=== PATIENT | female | born 1990 | race Caucasian/White ===

== ENCOUNTER 2023-01-15 18:45 | Emergency (ER) | payer OTHER ==
[~2023-01-15] VITALS: Ht 170.2 cm; Wt 85.5 kg
[2023-01-15 18:45] VITALS: BP 139/84; TEMP 98.8; O2SAT 99
[2023-01-15] MEDS ORDERED: DOXY-443 PO (20:20)
[2023-01-15] MEDS ORDERED: DOXYCYCLINE HYCLATE 100MG TABLET PO ONE (20:20)
== END 2023-01-15 20:30 | disposition home or self-care (01) ==
LOC: M ED 18:45
DX: L03.312 Cellulitis of back [any part except buttock and flank] (principal); Z88.6 Allergy status to analgesic agent; Z79.2 Long term (current) use of antibiotics

== ENCOUNTER 2023-03-12 09:25 | Emergency (ER) | payer OTHER ==
[~2023-03-12] VITALS: Ht 167.6 cm; Wt 83.2 kg
[~2023-03-12 09:25] MED LIST: DOXY-443 PO
[2023-03-12] MEDS ORDERED: BISO5TAB14 PO (09:37)
[2023-03-12 12:38] LABS: CK-MB VALUE MASS < 1.0 NG/ML (<3.6); CPK CREATINE PHOSPHOKINASE 71 U/L (34-145)
[2023-03-12 12:53] LABS: BASO % 0.4 % (0.0-1.0); EOS # 0.1 10^3/uL (0.0-0.5); EOS % 1.8 % (0.0-3.0); HEMATOCRIT 38.8 % (36.0-47.0); LYMPH # 1.8 10^3/uL (1.5-5.0); MEAN CORPUSCULAR HEMOGLOBIN 29.5 pg (27.0-33.0); MEAN CORPUSCULAR HGB CONC 33.5 g/dl (32.0-36.5); MEAN CORPUSCULAR VOLUME 88.2 fl (80.0-96.0); MONO # 0.7 10^3/uL (0.0-0.8); MONO % 10.2 % (2.0-8.0); NEUTROPHILS # 4.4 10^3/uL (1.5-8.5); NEUTROPHILS % 62.3 % (36.0-66.0); PLATELET COUNT, AUTOMATED 306 10^3/uL (150-450); WHITE BLOOD COUNT 7.1 10^3/uL (4.0-10.0)
[2023-03-12 13:20] LABS: INR 1.04; PROTHROMBIN TIME 13.3 SECONDS (12.5-14.5)
[2023-03-12 13:21] LABS: PARTIAL THROMBOPLASTIN TIME 36.8 SECONDS (24.8-34.2)
[2023-03-12 13:24] LABS: D-DIMER QUANT 0.31 ug/mL (<0.5)
[2023-03-12] MEDS ORDERED: methylPREDNISolone 125MG 2ML VIAL IV ONE (19:10)
[2023-03-12] MEDS ORDERED: KETOROLAC 30 MG/ML 1ML VIAL IV ONE (19:10)
[2023-03-12] MEDS ORDERED: MEDR4PAK PO (19:15)
[2023-03-12 19:38] VITALS: BP 116/78; TEMP 97.6; O2SAT 99
== END 2023-03-12 20:04 | disposition home or self-care (01) ==
LOC: M ED 09:25
DX: R07.9 Chest pain, unspecified (principal); R53.1 Weakness; R20.2 Paresthesia of skin; Z79.82 Long term (current) use of aspirin; Z79.899 Other long term (current) drug therapy; Z88.8 Allergy status to other drugs, medicaments and biological substances
CPT/HCPCS: 70450; 70544; 70551; 71045; 72125; 72141; 80047; 82550; 82553; 84484; 84702; 85025; 85379; 85610; 85730; 93005; 96374; 96375; 99284; J1885; J2930

== ENCOUNTER 2023-03-22 22:29 | Emergency (ER) | payer OTHER ==
[~2023-03-22] VITALS: Ht 167.6 cm; Wt 83.9 kg
[~2023-03-22 22:29] MED LIST changes: +BISO5TAB14 PO; +MEDR4PAK PO
[2023-03-22] MEDS ORDERED: LORazepam 2 MG/ML 1ML VIAL IV STA (23:52)
[2023-03-23 00:41] LABS: BASO % 0.4 % (0.0-1.0); EOS # 0.2 10^3/uL (0.0-0.5); HEMATOCRIT 40.6 % (36.0-47.0); HEMOGLOBIN 13.6 g/dl (12.0-15.5); LYMPH # 2.8 10^3/uL (1.5-5.0); LYMPH % 25.4 % (24.0-44.0); MEAN CORPUSCULAR HEMOGLOBIN 29.8 pg (27.0-33.0); MEAN CORPUSCULAR HGB CONC 33.5 g/dl (32.0-36.5); MONO # 0.9 10^3/uL (0.0-0.8); NEUTROPHILS # 6.9 10^3/uL (1.5-8.5); NEUTROPHILS % 63.7 % (36.0-66.0); PLATELET COUNT, AUTOMATED 360 10^3/uL (150-450); RED BLOOD COUNT 4.56 10^6/uL (4.00-5.40); WHITE BLOOD COUNT 10.9 10^3/uL (4.0-10.0)
[2023-03-23 01:34] LABS: HCG, SERUM QUALITATIVE NEGATIVE (NEGATIVE)
[2023-03-23 01:48] LABS: BLOOD UREA NITROGEN 13 MG/DL (9-23); CALCIUM LEVEL 9.4 MG/DL (8.5-10.1); CARBON DIOXIDE LEVEL 28 MMOL/L (20-31); CHLORIDE LEVEL 102 MMOL/L (98-107); CK-MB VALUE MASS < 1.0 NG/ML (<3.6); CREATININE FOR GFR 0.56 MG/DL (0.55-1.30); GLOMERULAR FILTRATION RATE > 60.0 (>60); GLUCOSE, FASTING 107 MG/DL (60-100); POTASSIUM SERUM 3.9 MMOL/L (3.5-5.1); SODIUM LEVEL 140 MMOL/L (136-145)
[2023-03-23 01:53] LABS: CPK CREATINE PHOSPHOKINASE 62 U/L (34-145); MB/CK RELATIVE INDEX 1.61 (< OR =4)
[2023-03-23] MEDS ORDERED: ISOVUE-370 76% 100ML VIAL As Ordered ONE (02:05)
[2023-03-23 02:32] VITALS: TEMP 98.1
[2023-03-23 03:30] LABS: CK-MB VALUE MASS < 1.0 NG/ML (<3.6)
[2023-03-23 03:32] LABS: CPK CREATINE PHOSPHOKINASE 37 U/L (34-145)
[2023-03-23] MEDS ORDERED: NAPR-837 PO (05:04)
[2023-03-23] MEDS ORDERED: KETOROLAC 30 MG/ML 1ML VIAL IV ONE (05:05)
[2023-03-23 05:15] VITALS: BP 117/63
[2023-03-23 05:17] VITALS: O2SAT 97
== END 2023-03-23 05:31 | disposition home or self-care (01) ==
LOC: M ED 22:29
DX: R07.89 Other chest pain (principal); F06.4 Anxiety disorder due to known physiological condition; I45.81 Long QT syndrome; F17.200 Nicotine dependence, unspecified, uncomplicated; Z88.6 Allergy status to analgesic agent; Z79.1 Long term (current) use of non-steroidal anti-inflammatories (NSAID); Z79.899 Other long term (current) drug therapy
CPT/HCPCS: 71275; 80048; 82550; 82553; 84484; 84703; 85025; 93005; 93041; 94760; 96374; 96375; 99285; J1885; J2060; Q9967

== ENCOUNTER 2024-04-08 11:14 | Emergency (ER) | payer OTHER ==
[~2024-04-08] VITALS: Ht 167.6 cm; Wt 83.6 kg
[~2024-04-08 11:14] MED LIST changes: +DOXY-441 PO; -DOXY-443 PO; +NAPR-837 PO
[2024-04-08 11:48] LABS: BASO % 0.3 % (0.0-1.0); EOS # 0.1 10^3/uL (0.0-0.5); EOS % 1.6 % (0.0-3.0); HEMATOCRIT 39.9 % (36.0-47.0); HEMOGLOBIN 13.4 g/dl (12.0-15.5); LYMPH # 1.9 10^3/uL (1.5-5.0); LYMPH % 27.1 % (24.0-44.0); MEAN CORPUSCULAR HEMOGLOBIN 30.1 pg (27.0-33.0); MEAN CORPUSCULAR HGB CONC 33.6 g/dl (32.0-36.5); MEAN CORPUSCULAR VOLUME 89.7 fl (80.0-96.0); MONO # 0.5 10^3/uL (0.0-0.8); MONO % 6.4 % (2.0-8.0); NEUTROPHILS # 4.6 10^3/uL (1.5-8.5); NEUTROPHILS % 64.5 % (36.0-66.0); PLATELET COUNT, AUTOMATED 330 10^3/uL (150-450); RED BLOOD COUNT 4.45 10^6/uL (4.00-5.40); WHITE BLOOD COUNT 7.1 10^3/uL (4.0-10.0)
[2024-04-08 11:58] LABS: INR 0.95; PARTIAL THROMBOPLASTIN TIME 38.4 SECONDS (24.8-34.2)
[2024-04-08 12:09] LABS: HCG, SERUM QUALITATIVE NEGATIVE (NEGATIVE)
[2024-04-08 12:10] LABS: CPK CREATINE PHOSPHOKINASE 70 U/L (34-145)
[2024-04-08 12:11] LABS: BLOOD UREA NITROGEN 10 MG/DL (9-23); CALCIUM LEVEL 9.8 MG/DL (8.5-10.1); CARBON DIOXIDE LEVEL 29 MMOL/L (20-31); CHLORIDE LEVEL 104 MMOL/L (98-107); CK-MB VALUE MASS < 1.0 NG/ML (<3.6); CREATININE FOR GFR 0.56 MG/DL (0.55-1.30); GLOMERULAR FILTRATION RATE > 60.0 (>60); GLUCOSE, FASTING 122 MG/DL (60-100); MB/CK RELATIVE INDEX 1.42 (< OR =4); POTASSIUM SERUM 4.2 MMOL/L (3.5-5.1); SODIUM LEVEL 140 MMOL/L (136-145)
[2024-04-08 17:07] VITALS: BP 119/77; TEMP 97.8; O2SAT 99
== END 2024-04-08 17:07 | disposition left against medical advice (07) ==
LOC: M ED 11:14
DX: R07.9 Chest pain, unspecified (principal); I10 Essential (primary) hypertension; F17.200 Nicotine dependence, unspecified, uncomplicated; Z88.6 Allergy status to analgesic agent; Z79.899 Other long term (current) drug therapy; Z53.9 Procedure and treatment not carried out, unspecified reason

== ENCOUNTER 2024-04-11 21:49 | Emergency (ER) | payer OTHER ==
[~2024-04-11] VITALS: Ht 167.6 cm; Wt 88.0 kg
[2024-04-11 22:31] LABS: BASO % 0.4 % (0.0-1.0); EOS # 0.2 10^3/uL (0.0-0.5); EOS % 2.2 % (0.0-3.0); HEMOGLOBIN 13.5 g/dl (12.0-15.5); LYMPH # 2.7 10^3/uL (1.5-5.0); LYMPH % 30.4 % (24.0-44.0); MEAN CORPUSCULAR HEMOGLOBIN 29.9 pg (27.0-33.0); MEAN CORPUSCULAR HGB CONC 33.8 g/dl (32.0-36.5); MEAN CORPUSCULAR VOLUME 88.5 fl (80.0-96.0); MONO # 0.7 10^3/uL (0.0-0.8); MONO % 7.9 % (2.0-8.0); NEUTROPHILS # 5.2 10^3/uL (1.5-8.5); NEUTROPHILS % 58.9 % (36.0-66.0); PLATELET COUNT, AUTOMATED 321 10^3/uL (150-450); RED BLOOD COUNT 4.52 10^6/uL (4.00-5.40); WHITE BLOOD COUNT 8.9 10^3/uL (4.0-10.0)
[2024-04-11 23:00] LABS: BLOOD UREA NITROGEN 15 MG/DL (9-23); CALCIUM LEVEL 10.2 MG/DL (8.5-10.1); CARBON DIOXIDE LEVEL 29 MMOL/L (20-31); CHLORIDE LEVEL 106 MMOL/L (98-107); CK-MB VALUE MASS < 1.0 NG/ML (<3.6); CREATININE FOR GFR 0.59 MG/DL (0.55-1.30); GLOMERULAR FILTRATION RATE > 60.0 (>60); GLUCOSE, FASTING 97 MG/DL (60-100); POTASSIUM SERUM 4.3 MMOL/L (3.5-5.1); SODIUM LEVEL 141 MMOL/L (136-145)
[2024-04-11 23:03] LABS: CPK CREATINE PHOSPHOKINASE 145 U/L (34-145); MB/CK RELATIVE INDEX 0.68 (< OR =4)
[2024-04-11 23:25] LABS: HCG, SERUM QUALITATIVE NEGATIVE (NEGATIVE)
[2024-04-11] MEDS: KETOROLAC 30 MG/ML 1ML VIAL IV ONE (23:25)
[2024-04-12] VITALS: TEMP 98
[2024-04-12 00:12] LABS: CK-MB VALUE MASS < 1.0 NG/ML (<3.6)
[2024-04-12 00:14] LABS: CPK CREATINE PHOSPHOKINASE 127 U/L (34-145); MB/CK RELATIVE INDEX 0.78 (< OR =4)
[2024-04-12] MEDS ORDERED: ISOVUE-370 76% 100ML VIAL As Ordered ONE (00:22)
[2024-04-12 01:30] VITALS: BP 102/55; O2SAT 99
== END 2024-04-12 02:04 | disposition home or self-care (01) ==
LOC: M ED 21:49
DX: R07.89 Other chest pain (principal); F17.200 Nicotine dependence, unspecified, uncomplicated; Z88.6 Allergy status to analgesic agent; Z79.1 Long term (current) use of non-steroidal anti-inflammatories (NSAID); Z79.899 Other long term (current) drug therapy
CPT/HCPCS: 71045; 71275; 80048; 82550; 82553; 84484; 84703; 85025; 93005; 93041; 94760; 96374; 99284; J1885; Q9967

== ENCOUNTER 2024-08-03 16:51 | Emergency (ER) | payer OTHER ==
[~2024-08-03] VITALS: Ht 167.6 cm; Wt 88.4 kg
[2024-08-03 19:31] LABS: BASO % 0.4 % (0.0-1.0); EOS % 0.7 % (0.0-3.0); HEMATOCRIT 38.4 % (36.0-47.0); HEMOGLOBIN 13.1 g/dl (12.0-15.5); LYMPH # 0.8 10^3/uL (1.5-5.0); LYMPH % 14.1 % (24.0-44.0); MEAN CORPUSCULAR HEMOGLOBIN 29.8 pg (27.0-33.0); MEAN CORPUSCULAR HGB CONC 34.1 g/dl (32.0-36.5); MEAN CORPUSCULAR VOLUME 87.5 fl (80.0-96.0); MONO # 0.9 10^3/uL (0.0-0.8); MONO % 16.3 % (2.0-8.0); NEUTROPHILS # 3.8 10^3/uL (1.5-8.5); NEUTROPHILS % 68.1 % (36.0-66.0); PLATELET COUNT, AUTOMATED 270 10^3/uL (150-450); RED BLOOD COUNT 4.39 10^6/uL (4.00-5.40); WHITE BLOOD COUNT 5.6 10^3/uL (4.0-10.0)
[2024-08-03 19:51] LABS: LIPASE 29 U/L (12-53)
[2024-08-03 19:53] LABS: ALBUMIN 3.7 G/DL (3.2-5.2); ALKALINE PHOSPHATASE 83 U/L (35-104); ALT/SGPT 37 U/L (7.0-40); AST/SGOT 18 U/L (<34); BILIRUBIN,DIRECT 0.1 MG/DL (<0.4); BILIRUBIN,TOTAL 0.4 MG/DL (0.3-1.2); BLOOD UREA NITROGEN 9 MG/DL (9-23); CALCIUM LEVEL 9.5 MG/DL (8.5-10.1); CARBON DIOXIDE LEVEL 28 MMOL/L (20-31); CHLORIDE LEVEL 100 MMOL/L (98-107); CREATININE FOR GFR 0.56 MG/DL (0.55-1.30); GLOMERULAR FILTRATION RATE > 60.0 (>60); GLUCOSE, FASTING 88 MG/DL (60-100); POTASSIUM SERUM 3.8 MMOL/L (3.5-5.1); SODIUM LEVEL 136 MMOL/L (136-145); TOTAL PROTEIN 7.7 G/DL (5.7-8.2)
[2024-08-03 21:25] VITALS: BP 109/70; TEMP 100.7; O2SAT 97
== END 2024-08-04 01:00 | disposition left against medical advice (07) ==
LOC: M ED 16:51
DX: Z53.21 Procedure and treatment not carried out due to patient leaving prior to being seen by health care provider (principal)

== ENCOUNTER 2024-09-04 13:30 | Emergency (ER) | payer OTHER ==
[~2024-09-04] VITALS: Ht 167.6 cm; Wt 90.6 kg
[2024-09-04 14:05] LABS: BASO % 0.3 % (0.0-1.0); EOS # 0.1 10^3/uL (0.0-0.5); HEMATOCRIT 35.4 % (36.0-47.0); HEMOGLOBIN 11.9 g/dl (12.0-15.5); LYMPH # 1.7 10^3/uL (1.5-5.0); LYMPH % 17.8 % (24.0-44.0); MEAN CORPUSCULAR HEMOGLOBIN 29.2 pg (27.0-33.0); MEAN CORPUSCULAR HGB CONC 33.6 g/dl (32.0-36.5); MONO # 0.7 10^3/uL (0.0-0.8); MONO % 7.1 % (2.0-8.0); NEUTROPHILS # 6.8 10^3/uL (1.5-8.5); NEUTROPHILS % 73.4 % (36.0-66.0); PLATELET COUNT, AUTOMATED 290 10^3/uL (150-450); RED BLOOD COUNT 4.07 10^6/uL (4.00-5.40); WHITE BLOOD COUNT 9.3 10^3/uL (4.0-10.0)
[2024-09-04 14:24] LABS: CK-MB VALUE MASS < 1.0 NG/ML (<3.6)
[2024-09-04 14:28] LABS: BLOOD UREA NITROGEN 12 MG/DL (9-23); CALCIUM LEVEL 9.3 MG/DL (8.5-10.1); CARBON DIOXIDE LEVEL 27 MMOL/L (20-31); CHLORIDE LEVEL 104 MMOL/L (98-107); CPK CREATINE PHOSPHOKINASE 78 U/L (34-145); CREATININE FOR GFR 0.51 MG/DL (0.55-1.30); GLOMERULAR FILTRATION RATE > 90.0 (>60); GLUCOSE, FASTING 103 MG/DL (60-100); MB/CK RELATIVE INDEX 1.28 (< OR =4); POTASSIUM SERUM 3.9 MMOL/L (3.5-5.1); SODIUM LEVEL 137 MMOL/L (136-145)
[2024-09-04] MEDS: ACETAMINOPHEN 325 MG TAB PO ONE (15:21)
[2024-09-04 16:03] LABS: CK-MB VALUE MASS < 1.0 NG/ML (<3.6)
[2024-09-04 16:04] LABS: CPK CREATINE PHOSPHOKINASE 75 U/L (34-145); MB/CK RELATIVE INDEX 1.33 (< OR =4)
[2024-09-04 17:13] VITALS: BP 109/57; TEMP 98.1; O2SAT 96
== END 2024-09-04 17:15 | disposition home or self-care (01) ==
LOC: M ED 13:30
DX: R07.89 Other chest pain (principal); E11.9 Type 2 diabetes mellitus without complications; I10 Essential (primary) hypertension; Z88.6 Allergy status to analgesic agent; Z79.899 Other long term (current) drug therapy; Z79.1 Long term (current) use of non-steroidal anti-inflammatories (NSAID)

== ENCOUNTER 2024-12-28 09:16 | Inpatient (IN) | payer OTHER ==
[2024-12-28] VITALS (13 sets, daily range): BP systolic 98–109; BP diastolic 55–66; TEMP 97.6–98.8; O2SAT 96–100
[~2024-12-28] VITALS: Ht 167.6 cm; Wt 96.0 kg
[2024-12-28] MEDS ORDERED: LABE100T6 PO (09:30)
[2024-12-28] MEDS: NS (Normal Saline) 0.9% 1,000 ML IV ONE (09:51)
[2024-12-28] MEDS ORDERED: ADENOSINE 6 MG/2 ML INJECTION As Ordered ONE (10:03)
[2024-12-28 10:05] LABS: BASO # 0.0 10^3/uL (0.0-0.2); BASO % 0.2 % (0.0-1.0); EOS # 0.1 10^3/uL (0.0-0.5); EOS % 0.9 % (0.0-3.0); LYMPH # 1.3 10^3/uL (1.5-5.0); LYMPH % 11.5 % (24.0-44.0); MONO # 0.8 10^3/uL (0.0-0.8); MONO % 7.5 % (2.0-8.0); NEUTROPHILS # 8.9 10^3/uL (1.5-8.5); NEUTROPHILS % 79.3 % (36.0-66.0); PLATELET COUNT, AUTOMATED 199 10^3/uL (150-450)
[2024-12-28] MEDS: ADENOSINE 6 MG/2 ML INJECTION IV STA (10:05)
[2024-12-28] MEDS ORDERED: HOME MED LIST COMPLETE! XX SCH (10:30)
[2024-12-28 10:38] LABS: ALT/SGPT 11 U/L (7.0-40); AST/SGOT 12 U/L (<34); CALCIUM LEVEL 8.7 MG/DL (8.5-10.1); CARBON DIOXIDE LEVEL 22 MMOL/L (20-31); CHLORIDE LEVEL 107 MMOL/L (98-107); CREATININE FOR GFR 0.43 MG/DL (0.55-1.30); GLOMERULAR FILTRATION RATE > 90.0 (>60); POTASSIUM SERUM 4.0 MMOL/L (3.5-5.1); SODIUM LEVEL 141 MMOL/L (136-145)
[2024-12-28 10:40] LABS: FREE T4 0.92 NG/DL (0.89-1.76)
[2024-12-28] MEDS: LABETALOL 100 MG TAB PO STA (10:53)
[2024-12-28] MEDS: MAG SULF 1GM/100ML (MAG RUN) 1 GM in IV 1 EA IV SCH (11:02)
[2024-12-28] MEDS: LR 1,000 ML IV SCH (12:21)
[2024-12-28 13:01] LABS: KETONE, URINE AUTO RFX TRACE mg/dL (NEGATIVE); LEUKOCYTE ESTERASE UR AUTO RFX NEGATIVE (NEGATIVE); MUCUS, URINE RFX SMALL (NEGATIVE); NITRITE, URINE AUTO RFX NEGATIVE (NEGATIVE); RBC, URINE AUTO RFX 0 /HPF (0-3); SQUAM EPITHELIAL CELL UR AURFX 12 /HPF (0-6); WBC, URINE AUTO RFX 1 /HPF (0-3)
[2024-12-28] MEDS: LORazepam 0.5 MG TAB PO PRN (16:56)
[2024-12-28] MEDS: MAG SULF 1GM/100ML (MAG RUN) 1 GM in IV 1 EA IV ONE (20:10)
[2024-12-28] MEDS: LABETALOL 100 MG TAB PO SCH (20:36)
[2024-12-28] MEDS ORDERED: LABETALOL 100 MG TAB PO SCH (21:00)
[2024-12-29] VITALS (9 sets, daily range): BP systolic 101–116; BP diastolic 55–61; TEMP 98–98.7; O2SAT 95–100
[2024-12-29 04:45] LABS: BASO # 0.0 10^3/uL (0.0-0.2); BASO % 0.2 % (0.0-1.0); EOS # 0.1 10^3/uL (0.0-0.5); EOS % 1.1 % (0.0-3.0); LYMPH # 1.9 10^3/uL (1.5-5.0); LYMPH % 18.8 % (24.0-44.0); MONO # 0.9 10^3/uL (0.0-0.8); MONO % 9.1 % (2.0-8.0); NEUTROPHILS # 7.0 10^3/uL (1.5-8.5); NEUTROPHILS % 70.1 % (36.0-66.0); PLATELET COUNT, AUTOMATED 180 10^3/uL (150-450)
[2024-12-29 05:18] LABS: CALCIUM LEVEL 8.5 MG/DL (8.5-10.1); CARBON DIOXIDE LEVEL 24 MMOL/L (20-31); CHLORIDE LEVEL 108 MMOL/L (98-107); CREATININE FOR GFR 0.42 MG/DL (0.55-1.30); GLOMERULAR FILTRATION RATE > 90.0 (>60); MAGNESIUM LEVEL 1.8 MG/DL (1.8-2.4); POTASSIUM SERUM 4.1 MMOL/L (3.5-5.1); SODIUM LEVEL 142 MMOL/L (136-145)
[2024-12-29] MEDS: MAG SULF 1GM/100ML (MAG RUN) 1 GM in IV 1 EA IV SCH (08:33)
[2024-12-29] MEDS: ENOXAPARIN 40 MG/0.4 ML SYRINGE (J1650 PER 10MG) SC SCH (08:34)
[2024-12-29] MEDS: ACETAMINOPHEN 325 MG TAB PO PRN (12:31)
[2024-12-29 13:01] LABS: PHOSPHORUS LEVEL 4.0 MG/DL (2.5-4.9)
[2024-12-29] MEDS: LOPERAMIDE 2 MG CAPLET PO PRN (14:10)
[2024-12-29] MEDS: MAGNESIUM OXIDE 400 MG TAB PO SCH (20:12)
[2024-12-30] VITALS: BP 106/58; TEMP 98.5; O2SAT 95
[2024-12-30 04:00] VITALS: BP 109/62; TEMP 98.3; O2SAT 95
[2024-12-30 04:52] LABS: BASO # 0.0 10^3/uL (0.0-0.2); BASO % 0.2 % (0.0-1.0); EOS # 0.2 10^3/uL (0.0-0.5); EOS % 1.7 % (0.0-3.0); LYMPH # 1.8 10^3/uL (1.5-5.0); LYMPH % 19.5 % (24.0-44.0); MONO # 0.9 10^3/uL (0.0-0.8); MONO % 9.8 % (2.0-8.0); NEUTROPHILS # 6.3 10^3/uL (1.5-8.5); NEUTROPHILS % 67.9 % (36.0-66.0); PLATELET COUNT, AUTOMATED 209 10^3/uL (150-450)
[2024-12-30 05:13] LABS: CALCIUM LEVEL 8.7 MG/DL (8.5-10.1); CARBON DIOXIDE LEVEL 23 MMOL/L (20-31); CHLORIDE LEVEL 107 MMOL/L (98-107); CREATININE FOR GFR 0.42 MG/DL (0.55-1.30); GLOMERULAR FILTRATION RATE > 90.0 (>60); MAGNESIUM LEVEL 1.7 MG/DL (1.8-2.4); POTASSIUM SERUM 4.0 MMOL/L (3.5-5.1); SODIUM LEVEL 144 MMOL/L (136-145)
[2024-12-30] MEDS: MAG SULF 1GM/100ML (MAG RUN) 1 GM in IV 1 EA IV ONE (06:28)
[2024-12-30] MEDS ORDERED: MAGNESIUM SULFATE 1 GM/100 ML D5W BAG (10MG/ML) As Ordered ONE (08:33)
[2024-12-30] MEDS ORDERED: MAGN400T33 PO (08:36)
[2024-12-30] MEDS ORDERED: LABE100T6 PO (08:36)
[2024-12-30] MEDS ORDERED: LOPE2CAP PO (08:36)
[2024-12-30 08:38] VITALS: BP 117/67; TEMP 98; O2SAT 97
[2024-12-30] MEDS: MAG SULF 1GM/100ML (MAG RUN) 1 GM in IV 1 EA IV SCH (08:39)
== END 2024-12-30 10:00 | disposition home or self-care (01) | DRG 832 ==
LOC: EDBD 09:16 → M ED 10:33 → M ED INP 10:50 → M ICU 11:24
PROVIDERS: ADMIT Internal Medicine Pulmonary Disease; ATTEND Internal Medicine
DX: O99.412 Diseases of the circulatory system complicating pregnancy, second trimester (principal); I47.10 Supraventricular tachycardia, unspecified; E86.0 Dehydration; F41.9 Anxiety disorder, unspecified; R19.7 Diarrhea, unspecified; E83.42 Hypomagnesemia; Z3A.27 27 weeks gestation of pregnancy; O99.342 Other mental disorders complicating pregnancy, second trimester; O99.282 Endocrine, nutritional and metabolic diseases complicating pregnancy, second trimester; D64.9 Anemia, unspecified; O99.012 Anemia complicating pregnancy, second trimester; Z79.899 Other long term (current) drug therapy

== ENCOUNTER → 2024-12-30 | Outpatient (CLI) | payer OTHER ==
[~2024-12-30] MED LIST changes: +LABE100T6 PO; +LOPE2CAP PO; +MAGN400T33 PO
== END ==
LOC: M WHC 11:30
PROVIDERS: ATTEND Obstetrics & Gynecology
DX: Z34.82 Encounter for supervision of other normal pregnancy, second trimester (principal)

== ENCOUNTER → 2025-01-04 | Outpatient (CLI) | payer OTHER ==
[2025-01-04 13:49] LABS: PLATELET COUNT, AUTOMATED 221 10^3/uL (150-450)
[2025-01-04 14:17] LABS: GLUCOSE CHALLENGE TEST 1 HOUR 145 MG/DL (LESS THAN 140)
[2025-01-04 14:45] LABS: HIV 1&2 SCREEN NEGATIVE (NEGATIVE)
[2025-01-04 14:52] LABS: Trichomonas vaginalis (AMP) NOT DETECTED (NEGATIVE)
[2025-01-04 14:53] LABS: HEPATITIS C VIRUS ABY INDEX < 0.02 INDEX (<0.8)
[2025-01-04 15:15] LABS: GC DNA AMPLIFICATION NEGATIVE (NEGATIVE)
== END ==
LOC: M PLALAB 10:39
PROVIDERS: ATTEND Obstetrics & Gynecology
DX: Z34.82 Encounter for supervision of other normal pregnancy, second trimester (principal); Z3A.00 Weeks of gestation of pregnancy not specified
CPT/HCPCS: 36415; 82950; 83735; 85027; 86780; 86803; 86850; 86900; 86901; 87389; 87661; 87810; 87850; J2790

== ENCOUNTER → 2025-01-04 | Outpatient (CLI) | payer OTHER | LOC: M PLALAB 10:38 | PROVIDERS: ATTEND Advanced Practice Midwife | DX: O34.211 Maternal care for low transverse scar from previous cesarean delivery (principal); Z3A.00 Weeks of gestation of pregnancy not specified ==

== ENCOUNTER 2025-01-17 16:19 | Emergency (ER) | payer OTHER ==
[~2025-01-17] VITALS: Ht 167.6 cm; Wt 95.2 kg
[2025-01-17] MEDS ORDERED: CLIN-250 (16:41)
[2025-01-17] MEDS ORDERED: PRENTAB9 (16:41)
[2025-01-17] MEDS ORDERED: LOPE1CAP5 (16:41)
[2025-01-17] MEDS: MAGIC MOUTHWASH 5 ML ORAL SYRINGE SS ONE (17:35)
[2025-01-17 18:12] VITALS: BP 112/57; TEMP 97.9; O2SAT 97
== END 2025-01-17 18:17 | disposition home or self-care (01) ==
LOC: M ED 16:19
DX: R09.A2 Foreign body sensation, throat (principal); I10 Essential (primary) hypertension; Z88.6 Allergy status to analgesic agent; Z79.899 Other long term (current) drug therapy

== ENCOUNTER → 2025-01-29 | Outpatient (CLI) | payer OTHER ==
[~2025-01-29] MED LIST changes: +AMOX875T2 PO; +CLIN-250; +LOPE1CAP5; +PRENTAB9
== END ==
LOC: M WHC 15:04
PROVIDERS: ATTEND Obstetrics & Gynecology
DX: O99.419 Diseases of the circulatory system complicating pregnancy, unspecified trimester (principal)

== ENCOUNTER 2025-01-31 06:42 | Outpatient (CLI) | payer OTHER ==
[~2025-01-31] VITALS: Ht 167.6 cm; Wt 94.0 kg
[~2025-01-31 06:42] MED LIST changes: -AMOX875T2 PO
[2025-01-31 07:05] VITALS: BP 108/61
[2025-01-31] MEDS: LACTATED RINGER'S 1000 ML IV STA (08:25)
[2025-01-31 08:33] VITALS: BP 112/62
[2025-01-31 08:48] LABS: BASO # 0.0 10^3/uL (0.0-0.2); BASO % 0.2 % (0.0-1.0); EOS # 0.1 10^3/uL (0.0-0.5); EOS % 0.5 % (0.0-3.0); LYMPH # 0.7 10^3/uL (1.5-5.0); LYMPH % 5.6 % (24.0-44.0); MONO # 0.7 10^3/uL (0.0-0.8); MONO % 5.9 % (2.0-8.0); NEUTROPHILS # 10.8 10^3/uL (1.5-8.5); NEUTROPHILS % 87.1 % (36.0-66.0); PLATELET COUNT, AUTOMATED 215 10^3/uL (150-450)
[2025-01-31 09:09] LABS: ALT/SGPT 16 U/L (7.0-40); AST/SGOT 34 U/L (<34); CALCIUM LEVEL 9.2 MG/DL (8.5-10.1); CARBON DIOXIDE LEVEL 26 MMOL/L (20-31); CHLORIDE LEVEL 101 MMOL/L (98-107); CREATININE FOR GFR 0.49 MG/DL (0.55-1.30); GLOMERULAR FILTRATION RATE > 90.0 (>60); POTASSIUM SERUM 4.9 MMOL/L (3.5-5.1); SODIUM LEVEL 136 MMOL/L (136-145)
[2025-01-31] MEDS: LR 1,000 ML IV SCH (09:26)
[2025-01-31 09:49] VITALS: BP 115/65
[2025-01-31 11:14] VITALS: BP 99/55
[2025-01-31] MEDS ORDERED: AMOX875T2 PO (12:53)
[2025-01-31] MEDS: AUGMENTIN 875 MG TAB PO ONE (13:39)
== END 2025-01-31 14:10 | disposition home or self-care (01) ==
LOC: M LDO 06:42
PROVIDERS: ATTEND Specialist
DX: O99.613 Diseases of the digestive system complicating pregnancy, third trimester (principal); O99.413 Diseases of the circulatory system complicating pregnancy, third trimester; K52.9 Noninfective gastroenteritis and colitis, unspecified; I47.10 Supraventricular tachycardia, unspecified; Z3A.31 31 weeks gestation of pregnancy
CPT/HCPCS: 59025; 80053; 85025; 87507; G0463

== ENCOUNTER → 2025-02-16 | Outpatient (CLI) | payer OTHER ==
[~2025-02-16] MED LIST changes: +AMOX875T2 PO
== END ==
LOC: M WHC 13:10
PROVIDERS: ATTEND Advanced Practice Midwife
DX: O09.293 Supervision of pregnancy with other poor reproductive or obstetric history, third trimester (principal); Z3A.34 34 weeks gestation of pregnancy

== ENCOUNTER 2025-02-25 18:59 | Outpatient (CLI) | payer OTHER ==
[~2025-02-25] VITALS: Ht 167.6 cm; Wt 98.7 kg
[~2025-02-25 18:59] MED LIST changes: -PRENTAB9; +PRENTAB9 PO
[2025-02-25 19:18] VITALS: BP 115/64
[2025-02-25] MEDS ORDERED: FERR325T3 PO (19:23)
[2025-02-25] MEDS ORDERED: HOME MED LIST COMPLETE! XX SCH (19:25)
[2025-03-04] MEDS ORDERED: MAGN400T2 PO (08:05)
[2025-03-04] MEDS ORDERED: VITA500T9 PO (08:05)
[2025-03-04] MEDS ORDERED: VITA100093 PO (10:34)
== END 2025-02-25 22:10 | disposition home or self-care (01) ==
LOC: M LDO 18:59
PROVIDERS: ATTEND Obstetrics & Gynecology
DX: O47.03 False labor before 37 completed weeks of gestation, third trimester (principal); Z3A.35 35 weeks gestation of pregnancy; Z86.32 Personal history of gestational diabetes; Z88.6 Allergy status to analgesic agent
CPT/HCPCS: 59025; 76815; G0463

== ENCOUNTER → 2025-03-03 | Outpatient (REF) | payer OTHER ==
[~2025-03-03] MED LIST changes: +FERR325T3 PO; +MAGN400T2 PO; +VITA100093 PO; +VITA500T9 PO
== END ==
LOC: M PLALAB 11:35
PROVIDERS: ATTEND Advanced Practice Midwife
DX: Z34.80 Encounter for supervision of other normal pregnancy, unspecified trimester (principal)

== ENCOUNTER 2025-03-04 11:30 | Inpatient (IN) | payer OTHER ==
[~2025-03-04] VITALS: Ht 167.6 cm; Wt 99.7 kg
[2025-03-15] VITALS (10 sets, daily range): BP systolic 104–122; BP diastolic 56–88; TEMP 97.5; O2SAT 94–98
[2025-03-15] MEDS: BICITRA 30 ML SOLN UDC PO ONE (05:35)
[2025-03-15 06:33] LABS: PLATELET COUNT, AUTOMATED 194 10^3/uL (150-450)
[2025-03-15] MEDS: LABETALOL 100 MG TAB PO ONE (06:44)
[2025-03-15] MEDS: MAGNESIUM OXIDE 400 MG TAB PO ONE (06:44)
[2025-03-15 07:09] LABS: HIV 1&2 SCREEN NEGATIVE (NEGATIVE)
[2025-03-15] MEDS: LR 1,000 ML IV SCH ×2 (07:15→10:22)
[2025-03-15] MEDS ORDERED: MORPHINE PRES-FREE INJ 10 MG/10 ML VIAL As Ordered ONE (07:22)
[2025-03-15] MEDS ORDERED: ACETAMINOPHEN 1000MG/100ML IV BAG As Ordered ONE (07:24)
[2025-03-15] MEDS ORDERED: OXYTOCIN 30UNITS IN 0.9% NaCl 500ML IV BAG IV ONE (07:24)
[2025-03-15] MEDS ORDERED: ONDANSETRON 4MG/2ML VIAL As Ordered ONE (07:26)
[2025-03-15] MEDS ORDERED: dexAMETHasone 4 MG/ML 1 ML VIAL As Ordered ONE (07:26)
[2025-03-15] MEDS ORDERED: KETOROLAC 30 MG/ML 1 ML VIAL As Ordered ONE (07:26)
[2025-03-15] MEDS ORDERED: PHENYLephrine 500MCG 5ML (100MCG/ML) SYRINGE As Ordered ONE (07:27)
[2025-03-15] MEDS: ceFAZolin SODIUM 2 GM in DEXTROSE 5% (D5W) ADV/MINI-BAG 50 ML IV ONE (07:36)
[2025-03-15] MEDS ORDERED: ANUSOL HC CREAM 30 GM TOP PRN (09:30)
[2025-03-15] MEDS ORDERED: PERCOCET 5MG/325MG TAB PO PRN (09:30)
[2025-03-15] MEDS ORDERED: CALCIUM CARBONATE 500 MG CHEW U/D PO PRN (09:30)
[2025-03-15] MEDS ORDERED: ACETAMINOPHEN 500 MG TAB PO PRN (09:30)
[2025-03-15] MEDS ORDERED: MORPHINE 4 MG/ML 1 ML VIAL IV PRN (09:30)
[2025-03-15] MEDS ORDERED: RHOGAM 300MCG (1500IU) INJ IM SCH (09:30)
[2025-03-15] MEDS ORDERED: ONDANSETRON 4MG/2ML VIAL IV PRN ×2 (09:30→09:50)
[2025-03-15] MEDS ORDERED: SIMETHICONE 80MG CHEW TAB PO PRN (09:30)
[2025-03-15] MEDS: OXYTOCIN DRIP 30 UNITS in IV 1 EA IV SCH (09:41)
[2025-03-15] MEDS ORDERED: IBUP80TA PO (09:44)
[2025-03-15] MEDS ORDERED: COLA100C5 PO (09:44)
[2025-03-15] MEDS ORDERED: PERCOCET PO (09:44)
[2025-03-15] MEDS ORDERED: HYDROMORPHONE HCL 0.5 MG/0.5 ML SYRINGE IV PRN (09:50)
[2025-03-15] MEDS ORDERED: MEPERIDINE 25 MG/ML 1 ML VIAL IV PRN (09:50)
[2025-03-15] MEDS ORDERED: NALOXONE INJ 0.4 MG/1 ML VIAL IV PRN ×2 (09:50)
[2025-03-15] MEDS ORDERED: **NOTE PATIENT COMMENT** MISC XX SCH (09:50)
[2025-03-15] MEDS: SLF 3 ML SYR IV SCH (09:50)
[2025-03-15] MEDS ORDERED: diphenhydrAMINE 50 MG/ML VIAL IV PRN (09:50)
[2025-03-15] MEDS: KETOROLAC 30 MG/ML 1 ML VIAL IV SCH (15:00)
[2025-03-15] MEDS: DOCUSATE SODIUM 100 MG CAPSULE PO SCH (21:18)
[2025-03-15] MEDS: LABETALOL 100 MG TAB PO SCH (21:18)
[2025-03-15] MEDS: MAGNESIUM OXIDE 400 MG TAB PO SCH (21:37)
[2025-03-16 02:00] VITALS: BP 104/52; O2SAT 96
[2025-03-16 06:00] VITALS: BP 104/56; O2SAT 98
[2025-03-16 07:19] LABS: PLATELET COUNT, AUTOMATED 172 10^3/uL (150-450)
[2025-03-16] MEDS: PRENATAL VITAMINS CHEWABLE TABLET PO SCH (08:28)
[2025-03-16] MEDS: FERROUS SULFATE 325 MG TAB PO SCH (08:29)
[2025-03-16 10:03] VITALS: BP 95/54; O2SAT 96
[2025-03-16] MEDS: IBUPROFEN 800 MG TAB PO SCH (11:00)
[2025-03-16] MEDS: PERCOCET 5MG/325MG TAB PO PRN (14:27)
[2025-03-16 14:39] VITALS: BP 99/54; O2SAT 97
[2025-03-16 18:02] VITALS: BP 103/56; O2SAT 96
[2025-03-16 22:04] VITALS: BP 94/54; O2SAT 98
[2025-03-17 01:53] VITALS: BP 101/59; O2SAT 96
[2025-03-17 05:45] VITALS: BP 113/66; O2SAT 96
[2025-03-17] MEDS: MEASLES,MUMPS,RUBELLA VACCINE INJ (MMR-II) SC.IMMUN ONE (07:44)
[2025-03-17 08:19] VITALS: BP 126/72
[2025-03-17] MEDS ORDERED: TETANUS/DIPHTH/ACEL. PERTUSSIS 0.5 ML SYR IM.IMMUN ONE (09:00)
[2025-03-17] MEDS ORDERED: **** TDAP VACCINE DUE PRIOR TO D/C**** MISC XX SCH (09:00)
[2025-03-17] MEDS ORDERED: FLUZONE VACCINE TRI PF(25-26) 0.5ML SYRINGE IM.IMMUN ONE (09:00)
[2025-03-17] MEDS: TETANUS/DIPHTH/ACEL. PERTUSSIS 0.5 ML SYR IM.IMMUN ONE (11:11)
[2025-03-17] MEDS: FLUZONE VACCINE TRI PF(25-26) 0.5ML SYRINGE IM.IMMUN ONE (11:12)
== END 2025-03-17 13:10 | disposition home or self-care (01) | DRG 772 ==
LOC: M LDI 03-15 05:28 → EDSTATUS 03-15 07:30 → M OBS 03-15 11:04
PROVIDERS: ADMIT Obstetrics & Gynecology; ATTEND Obstetrics & Gynecology
PROC: 10D00Z1 Extraction of Products of Conception, Low, Open Approach (ICD-10-PCS; principal; 2025-03-15 07:30)
DX: O34.211 Maternal care for low transverse scar from previous cesarean delivery (principal); O10.02 Pre-existing essential hypertension complicating childbirth; Z37.0 Single live birth; Z3A.38 38 weeks gestation of pregnancy

== ENCOUNTER 2025-04-12 21:31 | Emergency (ER) | payer OTHER ==
[~2025-04-12] VITALS: Ht 167.6 cm; Wt 93.2 kg
[~2025-04-12 21:31] MED LIST changes: +COLA100C5 PO; +IBUP80TA PO; -LABE100T6 PO; +LABE100T91 PO; +PERCOCET PO
[2025-04-12 22:08] LABS: BASO # 0.0 10^3/uL (0.0-0.2); BASO % 0.3 % (0.0-1.0); EOS # 0.2 10^3/uL (0.0-0.5); EOS % 2.6 % (0.0-3.0); LYMPH # 2.7 10^3/uL (1.5-5.0); LYMPH % 30.0 % (24.0-44.0); MONO # 0.8 10^3/uL (0.0-0.8); MONO % 8.4 % (2.0-8.0); NEUTROPHILS # 5.3 10^3/uL (1.5-8.5); NEUTROPHILS % 58.5 % (36.0-66.0); PLATELET COUNT, AUTOMATED 284 10^3/uL (150-450)
[2025-04-12 22:30] LABS: CK-MB VALUE MASS 1.5 NG/ML (<3.6)
[2025-04-12 22:32] LABS: CALCIUM LEVEL 9.6 MG/DL (8.5-10.1); CARBON DIOXIDE LEVEL 29 MMOL/L (20-31); CHLORIDE LEVEL 103 MMOL/L (98-107); CREATININE FOR GFR 0.62 MG/DL (0.55-1.30); GLOMERULAR FILTRATION RATE > 90.0 (>60); POTASSIUM SERUM 3.7 MMOL/L (3.5-5.1); SODIUM LEVEL 141 MMOL/L (136-145)
[2025-04-12 22:34] LABS: CPK CREATINE PHOSPHOKINASE 74 U/L (34-145); MB/CK RELATIVE INDEX 2.02 (< OR =4)
[2025-04-12 23:31] LABS: MAGNESIUM LEVEL 1.7 MG/DL (1.8-2.4)
[2025-04-12 23:40] VITALS: BP_SYST 135
[2025-04-12] MEDS: MAGNESIUM OXIDE 400 MG TAB PO ONE (23:40)
[2025-04-13] VITALS: BP_DIAS 88; TEMP 98.9; O2SAT 97
== END 2025-04-12 23:50 | disposition home or self-care (01) ==
LOC: M ED 21:31
DX: E83.42 Hypomagnesemia (principal); I47.10 Supraventricular tachycardia, unspecified; Z88.6 Allergy status to analgesic agent; Z79.899 Other long term (current) drug therapy; Z79.1 Long term (current) use of non-steroidal anti-inflammatories (NSAID)